=== PATIENT | male | born 1950 | race Caucasian/White ===

== ENCOUNTER 2017-03-16 13:50 | Emergency (ER) | payer SELFPAY ==
[~2017-03-16] VITALS: Ht 182.9 cm; Wt 112.8 kg
[2017-03-16 13:55] VITALS: BP 165/85; PULSE 70; RESP 16; TEMP 98; O2SAT 96
[2017-03-16] MEDS ORDERED: VITA1000 PO (14:09)
[2017-03-16] MEDS ORDERED: LISI20TA3 PO (14:09)
[2017-03-16] MEDS ORDERED: GEMF600T PO (14:09)
[2017-03-16] MEDS ORDERED: ASPI-516 CHEW (14:09)
--- NOTE | 2017-03-16 14:20 | PD ---
HPI Chief Complaint: Hypertension Time Seen by Provider: 14:20 Travel History International Travel<30 days: No Contact w/Intl Traveler<30days: No Traveled to known affect area: No History of Present Illness HPI 66-year-old male presents the emergency Department with history of approximately one week of episodic generalized fatigue and malaise which usually occurs approximately 10 to 11:00 in the morning, and last approximately 5-10 minutes. 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 Patient denies fever, chills, chest pain, shortness of breath, nausea, vomiting, or diarrhea. He does have a history of recent flu shot approximately week ago she feels may have something to do with it. [facility]. Patient denies specific complaints of depression, but does admit to severe stress due to his responsibilities at home. Patient has no known drug allergies. PFSH Past Medical History Hypertension: Yes Medical other: Yes (HYPERLIPIDEMIA) Influenza Vaccination: Yes Past Surgical History Surgical History: No Previous Surgery Social History Alcohol Use: Yes (DAILY) Tobacco Use: No Substance Use: No Allergies-Medications (Allergen,Severity, Reaction): Coded Allergies: No Known Allergies (Verified Allergy, Unknown, 03/16/17) Reported Meds & Prescriptions Reported Meds & Active Scripts Active Reported Vitamin D-1000 (Cholecalciferol) 1,000 Unit Tab 1,000 Units PO DAILY Gemfibrozil 600 Mg Tab 600 Mg PO BIDAC Take 30 minutes prior to breakfast and dinner. Aspirin 81 Mg Chew 81 Mg CHEW DAILY Lisinopril-Hctz 20-25 Mg Tab 1 Tab PO DAILY Review of Systems Except as stated in HPI: all other systems reviewed are Neg General / Constitutional: No: Fever Eyes: No: Visual changes HENT: No: Headaches Cardiovascular: No: Chest Pain or Discomfort Respiratory: No: Shortness of Breath Gastrointestinal: No: Abdominal Pain Genitourinary: No: Dysuria Musculoskeletal: No: Pain Skin: No Rash Neurologic: No: Weakness Psychiatric: No: Depression Endocrine: No: Polydipsia Hematologic/Lymphatic: No: Easy Bruising Physical Exam Narrative GENERAL: She appears somewhat anxious but otherwise no acute distress. SKIN: Warm and dry. Normal color. Normal turgor. HEAD: Atraumatic. Normocephalic. EYES: Pupils equal and round. No scleral icterus. No injection or drainage. ENT: No nasal bleeding or discharge. Mucous membranes pink and moist. TMs are clear. Pharynx is clear. Airway is patent. No sinus tenderness. NECK: Trachea midline. Supple nontender. CARDIOVASCULAR: Regular rate and rhythm. No murmurs gallops or rubs. RESPIRATORY: No accessory muscle use. Clear to auscultation. Breath sounds equal bilaterally. GASTROINTESTINAL: Abdomen soft, non-tender, nondistended. Hepatic and splenic margins not palpable. MUSCULOSKELETAL: Extremities without clubbing, cyanosis, or edema. No obvious deformities. NEUROLOGICAL: Awake and alert. No obvious cranial nerve deficits. Motor grossly within normal limits. Five out of 5 muscle strength in the arms and legs. Normal speech. PSYCHIATRIC: Appropriate mood and affect; insight and judgment normal. Data Data Last Documented VS Vital Signs Date Time Temp Pulse Resp B/P (MAP) Pulse Ox O2 Delivery O2 Flow Rate FiO2 03/16/17 13:55 98.0 70 16 165/85 (111) 96 MDM Medical Decision Making Medical Screen Exam Complete: Yes Emergency Medical Condition: Yes Differential Diagnosis Episodic malaise. Anxiety. Stress reaction. Narrative Course I do not suspect cardiac issue at this time. Patient is evaluated and felt to be nonemergent. Patient is going to follow-up with his primary care physician next week. Patient can return if symptoms worsen. A medical screening exam was performed: At the time of evaluation the presenting medical condition was determined not to be of an emergent nature. The patient was given the option of receiving additional care, but declined. Patient was given options for additional community resources from which to obtain care. The Patient Has Been advised to seek medical attention for their presenting complaint. The patient has been advised to return to the ER at any time if an emergent condition develops. Condition: Stable Lars Duran Mar 16, 2017 14:20
== END 2017-03-16 14:35 | disposition left against medical advice (07) ==
LOC: PHEFT 13:50
DX: R53.83 Other fatigue (principal)